=== PATIENT | female | born 1990 | race Caucasian/White ===

== ENCOUNTER 2018-03-01 13:29 | Emergency (ER) | payer OTHER ==
[2018-03-01 14:12] LABS: BASO # 0.1 10^3/uL (0.0-0.2); BASO % 0.7 % (0.0-1.0); EOS # 0.3 10^3/uL (0.0-0.50); HEMATOCRIT 41.8 % (36.0-47.0); HEMOGLOBIN 14.1 g/dl (12.0-15.5); IMMATURE GRANULOCYTE % 0.4 % (0-3.0); LYMPH # 3.6 10^3/uL (1.5-6.5); LYMPH % 25.8 % (24.0-44.0); MEAN CORPUSCULAR HEMOGLOBIN 31.4 pg (27.0-33.0); MEAN CORPUSCULAR HGB CONC 33.7 g/dl (32.0-36.5); MEAN CORPUSCULAR VOLUME 93.1 fl (80.0-96.0); MONO # 0.8 10^3/uL (0.0-0.8); MONO % 5.4 % (0.0-5.0); NEUTROPHILS # 9.1 10^3/uL (1.8-7.7); NEUTROPHILS % 65.7 % (36.0-66.0); PLATELET COUNT, AUTOMATED 319 10^3/uL (150-450); RED BLOOD COUNT 4.49 10^6/uL (4.00-5.40); RED CELL DISTRIBUTION WIDTH 12.6 % (11.5-14.5); WHITE BLOOD COUNT 13.9 10^3/uL (4.0-10.0)
[2018-03-01 14:23] LABS: KETONE, URINE AUTO RFX NEGATIVE (NEGATIVE); LEUKOCYTE ESTERASE UR AUTO RFX NEGATIVE (NEGATIVE); NITRITE, URINE AUTO RFX NEGATIVE (NEGATIVE); RBC, URINE AUTO RFX 1 /HPF (0-3); SPECIFIC GRAVITY UR AUTO RFX 1.005 (1.002-1.035); SQUAM EPITHELIAL CELL UR AURFX 0 /HPF (0-6); WBC, URINE AUTO RFX 1 /HPF (0-3)
[2018-03-01 14:47] LABS: ALBUMIN 3.7 GM/DL (3.2-5.2); ALKALINE PHOSPHATASE 46 U/L (45-117); ALT/SGPT 37 U/L (12-78); AMYLASE 38 U/L (25-115); ANION GAP 9 MEQ/L (8-16); AST/SGOT 26 U/L (7-37); BILIRUBIN,DIRECT 0.1 MG/DL (0.0-0.2); BILIRUBIN,TOTAL 0.4 MG/DL (0.2-1.0); BLOOD UREA NITROGEN 10 MG/DL (7-18); C REACTIVE PROTEIN QUANTITATIV 1.19 MG/DL (0.00-0.30); CARBON DIOXIDE LEVEL 24 MEQ/L (21-32); CHLORIDE LEVEL 106 MEQ/L (98-107); CREATININE FOR GFR 0.79 MG/DL (0.55-1.30); GLOMERULAR FILTRATION RATE > 60.0 (>60); GLUCOSE, FASTING 84 MG/DL (70-100); LIPASE 102 U/L (73-393); POTASSIUM SERUM 3.8 MEQ/L (3.5-5.1); SODIUM LEVEL 139 MEQ/L (136-145); TOTAL PROTEIN 7.4 GM/DL (6.4-8.2)
[2018-03-01 14:52] LABS: CONTROL LINE HCG INT CTR LINE PRESENT; HCG, SERUM QUALITATIVE NEGATIVE (NEGATIVE)
[2018-03-01] MEDS ORDERED: ISOVUE-370 76% 100ML VIAL (Q9967) As Ordered (14:58)
[2018-03-01 15:02] LABS: ERYTHROCYTE SEDIMENTATION RATE 29 mm/hr (0-20)
== END 2018-03-01 17:27 | disposition home or self-care (01) ==
LOC: M ED 13:29
DX: N39.0 Urinary tract infection, site not specified (principal); R16.0 Hepatomegaly, not elsewhere classified; J45.909 Unspecified asthma, uncomplicated
CPT/HCPCS: Q9967

== ENCOUNTER → 2018-03-22 | Outpatient (CLI) | payer OTHER ==
[~2018-03-22] MED LIST: CIPR-249 PO; DIFL150T PO; PROHANCE 279.3MG/ML 15ML VIAL (A9576) As Ordered ONE; PROHANCE 279.3MG/ML 5ML VIAL (A9576) As Ordered ONE
--- NOTE | 2018-03-23 09:36 | REP ---
MRI study of the abdomen and liver without and with IV gadolinium: History: Abdomen pain. Comparison CT study March 01, 2018 showed a hepatic mass at the inferior margin of the liver. Comparison sonography from 2009 was negative. Technique: Axial and coronal imaging planes were utilized. T1 and T2-weighted sequences include spin-echo, fast spin echo, diffusion, gradient echo, in and out of phase, and dynamically acquired sequential post gadolinium enhanced T1 fat sat images. The gadolinium enhancement dose is a 20 mL of intravenous ProHance. MRI findings: There is a fluid-fluid level in the gallbladder lumen on T2-weighted supine scans consistent with sludge. No MR evidence of gallstone is seen. No intra or extrahepatic biliary ductal dilation is observed. Pancreas is unremarkable without ductal dilation. No adrenal lesion is seen on either side. No focal splenic lesion or renal abnormality is observed. No retroperitoneal mass or adenopathy is seen. There is a tiny 2 mm cyst in the right lobe of the liver centrally. The known mass at the inferior edge of the liver is the only other focal liver lesion. By MRI, this measures 9.9 cm in greatest transverse dimension by 6.7 cm anterior to posterior by 8.3 cm cranial to caudal. The mass demonstrates an irregular central area of T2 hyperintensity and T1 hypointensity consistent with a central scar. The remainder the mass is essentially isointense with normal liver parenchyma on T2 and T1-weighted scans. Diffusion weighted scans show some evidence of restricted diffusion in the central scar but not elsewhere in the lesion. There is no evidence of intralesional fat on in and out of phase images. Dynamically acquired sequential post gadolinium enhanced images demonstrate early fairly homogeneous enhancement of the lesion except for some radially arranged septations and except for the central scar. Sequential followup postcontrast images demonstrate enhancement in the septations and ultimately, there is delayed enhancement in the central scar. Parenchyma of the lesion remains isodense with the enhanced liver parenchyma after the 1-minute acquisition. There is no evidence of enhancing capsule. No other abnormal gadolinium enhancement is seen. Study is otherwise unremarkable. Impression: Hypervascular peripheral hepatic mass lesion 9.9 cm in greatest diameter along the inferior margin of the liver demonstrating delayed enhancement in a central scar. The lesion is most compatible with focal nodular hyperplasia. Recommend sonography for baseline and then repeat sonography in 1 year. Electronically Signed by Abiel Gallo MD 03/23/2018 01:27 P
== END ==
LOC: M RAD 17:34
PROVIDERS: ATTEND Student in an Organized Health Care Education/Training Program
DX: R10.9 Unspecified abdominal pain (principal); K76.89 Other specified diseases of liver
CPT/HCPCS: 74183; A9576

== ENCOUNTER → 2018-04-19 | Outpatient (CLI) | payer OTHER ==
[~2018-04-19] MED LIST changes: +E-Z-GAS II EFFERVESCENT PACKET (SODIUM BICARB./CITRIC ACID/SIMETHICONE) As Ordered ONE; +E-Z-HD 98% w/w 340GM SUSP BTL As Ordered ONE; +E-Z-PAQUE 96% w/w SUSP 176GM BTL As Ordered ONE; -PROHANCE 279.3MG/ML 15ML VIAL (A9576) As Ordered ONE; -PROHANCE 279.3MG/ML 5ML VIAL (A9576) As Ordered ONE
--- NOTE | 2018-04-19 10:40 | REP ---
Right upper quadrant sonography: History: Abnormal imaging of the GI tract, focal nodular hyperplasia of the liver, nausea, diarrhea, fatty infiltration of the liver. Comparison CT study March 01, 2018. Comparison MRI examination March 22, 2018. The CT and MRI study showed a 9.9 cm mass in the inferior aspect of the right lobe of the liver most compatible with focal nodular hyperplasia. Sonographic findings: Scanning through right upper quadrant of the abdomen demonstrates a normal sized thin-walled gallbladder without evidence of stone or polyp. Common bile duct is at the upper range of normal measuring 0.7 cm. No pancreatic abnormality is noted. There is no evidence of ascites or right renal abnormality. The right kidney measures 11.0 x 5.7 x 4.5 cm. There is evidence of mild to moderate fatty infiltration of the liver diffusely. Inferiorly in the right lobe the known mass is seen to be somewhat hypoechoic. By ultrasound it measures 10.5 x 9.7 x 6.4 cm. The central scar is not visible morphologically by sonography. No other liver mass lesion is seen. Impression: Sonographic dimensions of the right lobe mass are 10.5 x 6.4 x 9.7 cm. It is somewhat hypoechoic. Sonographic followup is feasible. Consider 6-month followup exam. Electronically Signed by Abiel Gallo MD 04/19/2018 01:54 P
--- NOTE | 2018-04-19 17:57 | REP ---
Upper GI air contrast The procedure was performed under the direct supervision of Dr. Gallo. The images were reviewed with Dr. Gallo The limnologist film shows no organomegaly or pathological masses. The intestinal gas pattern is non-specific. Liquid barium and gas producing crystals were given in the erect position as well as liquid barium in the prone oblique position in order to perform a double contrast upper GI examination. The oral and pharyngeal stages of deglutition are unremarkable. Esophageal transport is prompt and efficient and there is no esophagitis, stricture, mucosal ring or hiatal hernia. There is mild gastroesophageal reflux demonstrated to below the level of the morena. The stomach lauren are normally outlined . The rugal folds are smooth and regular. There is no gastritis neoplasm or ulcer disease. The duodenal lauren are normally outlined . The mucosal folds are smooth and regular. There is no duodenitis pancreatitis peptic ulcer disease or neoplasm. The visualized portion of the proximal small bowel appears normal in course and caliber. Impression: There is mild gastroesophageal reflux demonstrated to below the level of the morena. Otherwise, unremarkable double contrast upper GI examination. 1.5 minutes of fluoro time was utilized for this procedure. Reviewed by KYLEIGH Pruitt 04/19/2018 05:29 P Electronically Signed by Abiel Gallo MD 04/19/2018 05:48 P
== END ==
LOC: M RAD 07:35
PROVIDERS: ATTEND Physician Assistant Medical
DX: R11.0 Nausea (principal); K75.81 Nonalcoholic steatohepatitis (NASH)

== ENCOUNTER → 2018-08-13 | Outpatient (REF) | payer OTHER ==
[~2018-08-13] MED LIST changes: -E-Z-GAS II EFFERVESCENT PACKET (SODIUM BICARB./CITRIC ACID/SIMETHICONE) As Ordered ONE; -E-Z-HD 98% w/w 340GM SUSP BTL As Ordered ONE; -E-Z-PAQUE 96% w/w SUSP 176GM BTL As Ordered ONE
== END ==
LOC: M SFHCLERA 09:38
PROVIDERS: ATTEND Nurse Practitioner Family
DX: J02.9 Acute pharyngitis, unspecified (principal)